=== PATIENT | female | born 1965 | race Caucasian/White ===

== ENCOUNTER 2017-02-25 12:14 | Emergency (ER) | payer OTHER ==
--- NOTE | 2017-02-25 12:33 | ERPHSYRPT ---
- History of Present Illness Time Seen by Provider: 02/25/17 12:27 Source: patient Exam Limitations: no limitations Patient Subjective Stated Complaint: rash Triage Nursing Assessment: pt states she has had poison ana for past week. c/o severe itching to bilat arms, neck and legs. poison type rash to areas. Physician History: The patient is a 51-year-old female with her complaining of getting into poison ana about a week ago and now she has a rash on her arms that back of her neck and feet that is itching severely. She has tried calamine lotion without effect. She has a known history of being allergic to poison ana. Her past medical history is significant for hypertension, hypothyroidism, sleep disorder, appendectomy, and hernia repair. Timing/Duration: week(s) (1) Quality: itchy Severity: moderate Location: extremities, neck Possible Causes: poison ana Modifying Factors: Improves With: calamine lotion Associated Symptoms: rash Allergies/Adverse Reactions: Penicillins Allergy (Verified 02/25/17 12:21) Home Medications: Enalapril Maleate [Vasotec] 20 mg PO HS 12/06/14 [History] Hydrochlorothiazide 12.5 mg PO DAILY 12/06/14 [History] Levothyroxine Sodium 50 Mcg [Synthroid 50 Mcg] 75 mcg PO DAILY 12/06/14 [ History] Metoprolol Tartrate 50 mg PO BID 12/06/14 [History] Hx Tetanus, Diphtheria Vaccination/Date Given: Yes Hx Influenza Vaccination/Date Given: No Hx Pneumococcal Vaccination/Date Given: No Immunizations Up to Date: Yes - Review of Systems Constitutional: No Fever, No Chills Eyes: No Symptoms Ears, Nose, & Throat: No Symptoms Respiratory: No Cough, No Dyspnea Cardiac: No Chest Pain, No Edema, No Syncope Abdominal/Gastrointestinal: No Abdominal Pain, No Nausea, No Vomiting, No Diarrhea Genitourinary Symptoms: No Dysuria Musculoskeletal: No Back Pain, No Neck Pain Skin: Rash Neurological: No Dizziness, No Focal Weakness, No Sensory Changes Psychological: No Symptoms Endocrine: No Symptoms Hematologic/Lymphatic: No Symptoms Immunological/Allergic: No Symptoms All Other Systems: Reviewed and Negative - Past Medical History Pertinent Past Medical History: Yes Cardiac History: Hypertension Respiratory History: Sleep Apnea Endocrine Medical History: Hypothyroidism Musculoskeletal History: Arthritis Psycho-Social History: Depression Female Reproductive Disorders: Endometriosis Other Medical History: anemia - Past Surgical History Past Surgical History: Yes Gastrointestinal: Appendectomy, Hernia Repair Musculoskeletal: Orthopedic Surgery Female Surgical History: Section, Hysterectomy Other Surgical History: right leg surgery, left hand - Social History Smoking Status: Current every day smoker Exposure to second hand smoke: No Drug Use: none Patient Lives Alone: No - Female History Hx Now: No - Nursing Vital Signs Nursing Vital Signs: Initial Vital Signs Temperature 99.1 F Temperature Source Oral Pulse Rate 90 Respiratory Rate 18 Blood Pressure [Right Arm] 141/81 Pain Intensity 0 - Physical Exam General Appearance: no apparent distress, alert Eye Exam: PERRL/EOMI, eyes nml inspection Ears, Nose, Throat Exam: normal ENT inspection, pharynx normal, moist mucous membranes Neck Exam: normal inspection, non-tender, supple, full range of motion Respiratory Exam: normal breath sounds, lungs clear, No respiratory distress Cardiovascular Exam: regular rate/rhythm, normal heart sounds Gastrointestinal/Abdomen Exam: soft, mass, No tenderness Pelvic Exam: not done Rectal Exam: not done Back Exam: normal inspection, normal range of motion, No CVA tenderness, No vertebral tenderness Extremity Exam: normal inspection, normal range of motion Neurologic Exam: alert, oriented x 3, cooperative, normal mood/affect, sensation nml, No motor deficits Skin Exam: rash (linear on arms, feet, neck.) SpO2 Interpretation: normal SpO2: 99 Oxygen Delivery: Room Air - Departure Time of Disposition: 12:35 Departure Disposition: Home Clinical Impression: Contact dermatitis due to poison ana Condition: Stable Critical Care Time: No Additional Instructions: You have an allergic reaction to poison ana. Take prednisone 60 mg daily for 5 days. If no improvement by Monday, contact your local provider. Prescriptions: Prednisone 20 mg [Deltasone 20 mg] 3 tab PO DAILY #15 tablet
[2017-02-25 12:43] VITALS: BP 119/82; PULSE 81; O2SAT 97
== END 2017-02-25 12:40 | disposition home or self-care (01) ==
LOC: ED 12:14
DX: L23.7 Allergic contact dermatitis due to plants, except food (principal)
CPT/HCPCS: 99283

== ENCOUNTER 2017-03-27 19:25 | Emergency (ER) | payer OTHER ==
[2017-03-27] MEDS ORDERED: DUONEB 0.5-3 MG/3 ml Neb IH ONE ×2 (19:52→19:58)
--- NOTE | 2017-03-27 19:58 | ERPHSYRPT ---
- History of Present Illness Time Seen by Provider: 03/27/17 19:45 Source: patient Exam Limitations: clinical condition Patient Subjective Stated Complaint: Pt sts shortness of breath at home 1-1.5 hours ago. Sts off and on rash x 3 weeks on arms. Sts tonight having a feeling like she has to swallow to get air. Denies feeling like her tongue is swollen. Sts her mouth is dry. No new soaps, perfumes, laundry detergents. Sts been on prednisone twice recently for rash. Triage Nursing Assessment: Pt alert, oriented, answers all questions appropriately. Able to speak in full sentences. Resps non-labored. SPO2 97% room air. Lung sounds CTA bilat non-labored. Physician History: PATIENT COMPLAINS OF DIFFICULTY TAKING A DEEP BREATH OVER A FEW DAYS. HAS A NONPRODUCTIVE COUGH FOR 3-4 DAYS AND A RASH OVER HER RIGHT FOREARM FOR 3 WEEKS. DENIES FEVER, OR CHEST PAIN. Timing/Duration: day(s) Activities at Onset: none Severity of Dyspnea-Max: mild Severity of Dyspnea-Current: mild Possible Cause: occasional episodes Modifying Factors: Improves With: deep breath Associated Symptoms: cough Allergies/Adverse Reactions: Penicillins Allergy (Verified 03/27/17 19:25) Home Medications: Enalapril Maleate [Vasotec] 20 mg PO HS 12/06/14 [History] Hydrochlorothiazide 12.5 mg PO DAILY 12/06/14 [History] Levothyroxine Sodium 50 Mcg [Synthroid 50 Mcg] 75 mcg PO DAILY 12/06/14 [ History] Metoprolol Tartrate 50 mg PO BID 12/06/14 [History] Armodafinil [Nuvigil] 150 mg PO DAILY 03/27/17 [History] Hx Tetanus, Diphtheria Vaccination/Date Given: Yes Hx Influenza Vaccination/Date Given: No Hx Pneumococcal Vaccination/Date Given: No - Review of Systems Constitutional: No Fever, No Chills Eyes: No Symptoms Ears, Nose, & Throat: No Symptoms Respiratory: Cough, Dyspnea Cardiac: No Chest Pain, No Edema, No Syncope Abdominal/Gastrointestinal: No Abdominal Pain, No Nausea, No Vomiting, No Diarrhea Genitourinary Symptoms: No Dysuria Musculoskeletal: No Back Pain, No Neck Pain Skin: No Rash Neurological: No Dizziness, No Focal Weakness, No Sensory Changes Psychological: No Symptoms Endocrine: No Symptoms All Other Systems: Reviewed and Negative - Past Medical History Pertinent Past Medical History: Yes Cardiac History: Hypertension Respiratory History: Sleep Apnea Endocrine Medical History: Hypothyroidism Musculoskeletal History: Arthritis Psycho-Social History: Depression Female Reproductive Disorders: Endometriosis Other Medical History: anemia - Past Surgical History Past Surgical History: Yes Gastrointestinal: Appendectomy, Hernia Repair Musculoskeletal: Orthopedic Surgery Female Surgical History: Section, Hysterectomy Other Surgical History: right leg surgery, left hand, hernia repair 6 weeks ago - Social History Smoking Status: Current every day smoker How long have you smoked: 30 Exposure to second hand smoke: No Drug Use: none Patient Lives Alone: No - Female History Hx Last Menstrual Period: hyst Hx Now: No - Nursing Vital Signs Nursing Vital Signs: Initial Vital Signs Temperature 99.3 F Temperature Source Oral Pulse Rate 78 Respiratory Rate 16 Blood Pressure [] 136/95 Pain Intensity 0 - Physical Exam General Appearance: no apparent distress, alert Eye Exam: PERRL/EOMI Neck Exam: normal inspection, supple Respiratory Exam: lungs clear, diminished breath sounds Cardiovascular/Chest Exam: normal heart sounds, regular rate/rhythm Abdominal/Gastrointestinal Exam: soft, normal bowel sounds, No tenderness, No distention, No mass Extremity Exam: non-tender, normal range of motion, normal inspection, no calf tenderness, no pedal edema Peripheral Pulses Exam: carotid (R): 2+, carotid (L): 2+, femoral (R): 2+, femoral (L): 2+, dorsalis-pedis (R): 2+, dorsalis-pedis (L): 2+ Neurologic Exam: alert, oriented x 3, cooperative, 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 II-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 nml as tested, sensation nml, No motor deficits Skin Exam: normal color, warm, No dry SpO2 Interpretation: normal SpO2: 97 Oxygen Delivery: Room Air - Course EKG Interpreted by Me: RATE, Sinus Rhythm, NORMAL AXIS - Radiology Exams Chest X-ray Interpretation: Reviewed by me (BILATERAL LOWER LOBE INFILTRATES VS SCARRING) - CT Exams Chest CT Interpretation: Discussed w/radiologist (PULMONARY EMBOLISM, INCIDENTAL MINIMAL BIBASILAR ATELECTASIS WITH SMALL LEFT POSTERIOR MEDIAL PEUMATOCELE), Tele-radiologist Report Ordered Tests: Active Orders 24 hr Category Date Time Status Line Repairer STAT Care 03/27/17 19:52 Active EKG-ER Only STAT Care 03/27/17 19:52 Active IV Insertion STAT Care 03/27/17 19:52 Active CHEST 2 VIEWS (PA AND LAT) Stat Exams 03/27/17 19:53 Taken CHEST WITH CONTRAST [CT] Stat Exams 03/27/17 21:18 Taken ARTERIAL BLOOD GASES Stat Lab 03/27/17 19:57 Completed BLOOD CULTURE Stat Lab 03/27/17 20:20 Received BMP Stat Lab 03/27/17 20:17 Completed CBC W DIFF Stat Lab 03/27/17 20:17 Completed D-DIMER QUANTITATION Stat Lab 03/27/17 20:17 Completed MAGNESIUM Stat Lab 03/27/17 20:17 Completed PROTIME WITH INR Stat Lab 03/27/17 20:17 Completed TROPONIN Stat Lab 03/27/17 20:17 Completed Peak Expiratory Flow Rate ONCE RT 03/27/17 19:54 Completed Respiratory Nebulizer STAT RT 03/27/17 19:54 Completed Medication Summary Generic Name Dose Route Start Last Admin Trade Name Freq PRN Reason Stop Dose Admin Sodium Chloride 1,000 mls @ 50 mls/hr 03/27/17 20:00 03/27/17 20:14 Sodium Chloride 0.9% 1000 Ml IV 04/26/17 19:59 50 mls/hr .Q20H [place] Administration Discontinued Medications Generic Name Dose Route Start Last Admin Trade Name Freq PRN Reason Stop Dose Admin Albuterol/Ipratropium 3 ml 03/27/17 19:52 03/27/17 20:15 Duoneb 0.5-3 Mg/3 Ml Neb IH 03/27/17 19:53 3 ml STAT ONE Administration Albuterol/Ipratropium Confirm 03/27/17 19:58 Duoneb 0.5-3 Mg/3 Ml Neb Administered 03/27/17 19:59 Dose 3 ml IH .STK-MED ONE Levofloxacin/Dextrose 500 mg in 100 mls @ 100 mls/hr 03/27/17 21:04 03/27/17 22:23 Levofloxacin 500mg/100ml D5w IV 03/27/17 22:03 100 mls/hr STAT STA Administration Levofloxacin/Dextrose Confirm 03/27/17 21:11 Levofloxacin 500mg/100ml D5w Administered 03/27/17 21:12 Dose 500 mg in 100 mls @ ud IV .STK-MED ONE Magnesium Sulfate/Dextrose Confirm 03/27/17 21:13 Magnesium 1 Gm / 100 Ml D5w Administered 03/27/17 21:14 Dose 100 mls @ ud IV .STK-MED ONE Magnesium Sulfate/Dextrose 100 mls @ 200 mls/hr 03/27/17 21:15 03/27/17 21:18 Magnesium 1 Gm / 100 Ml D5w IV 03/27/17 21:44 200 mls/hr STAT ONE Administration Methylprednisolone Sodium Succinate 125 mg 03/27/17 21:04 03/27/17 22:23 Solu-Medrol 125 Mg IV 03/27/17 21:05 125 mg STAT ONE Administration Methylprednisolone Sodium Succinate Confirm 03/27/17 21:11 Solu-Medrol 125 Mg Administered 03/27/17 21:12 Dose 125 mg .ROUTE .STK-MED ONE Lab/Rad Data: Laboratory Result Diagrams 03/27/17 20:17 03/27/17 20:17 Laboratory Results 03/27/17 03/27/17 03/27/17 Range/Units 20:17 20:17 20:17 WBC 9.3 (4.0-10.5) K/mm3 RBC 4.31 (4.1-5.4) M/mm3 Hgb 12.9 (12.0-16.0) gm/dl Hct 38.5 (35-47) % MCV 89.3 (78-100) fl MCH 29.9 (26-32) pg MCHC 33.5 (32-36) g/dl RDW 13.5 (11.5-14.0) % Plt Count 446 (150-450) K/mm3 MPV 10.1 H (6-9.5) fl Gran % 64.4 (36.0-66.0) % Lymphocytes % 29.3 (24.0-44.0) % Monocytes % 3.7 (0.0-12.0) % Eosinophils % 2.0 (0.00-5.0) % Basophils % 0.6 (0.0-0.4) % Basophils # 0.06 (0-0.4) INR 1.05 (0.8-3.0) D-Dimer 505.48 H* (0.00-500.00) ng/mL Puncture Site pCO2 (35-45) mmHg pO2 (75-100) mmHg Base Excess (-2.0-2.0) O2 Saturation (94-100) g/dF ABG pH (7.35-7.45) ABG HCO3 (22-28) ABG O2 Sat (Measured) (95-100) % David Test A-a Gradient a/A Ratio Hemoglobin Carboxyhemoglobin (0.0-6.9) % THgb Methemoglobin (1.4-1.5) % Potassium 3.6 (3.5-5.1) Temperature C POC O2 Flow Rate % Sodium 130 L (136-145) mEq/L Chloride 93 L (98-107) mEq/L Carbon Dioxide 26.3 (21-32) mEq/L Anion Gap 13.8 (5-15) MEQ/L BUN 8 L (9-20) mg/dL Creatinine 0.83 (0.55-1.30) mg/dl Estimated GFR > 60 ML/MIN Glucose 110 (70-110) MG/DL Calcium 9.2 (8.5-10.1) mg/dL Magnesium 1.5 L (1.8-2.4) mg/dL Troponin I < 0.017 (0.000-0.056) ng/ml 03/27/17 Range/Units 19:57 WBC (4.0-10.5) K/mm3 RBC (4.1-5.4) M/mm3 Hgb (12.0-16.0) gm/dl Hct (35-47) % MCV (78-100) fl MCH (26-32) pg MCHC (32-36) g/dl RDW (11.5-14.0) % Plt Count (150-450) K/mm3 MPV (6-9.5) fl Gran % (36.0-66.0) % Lymphocytes % (24.0-44.0) % Monocytes % (0.0-12.0) % Eosinophils % (0.00-5.0) % Basophils % (0.0-0.4) % Basophils # (0-0.4) INR (0.8-3.0) D-Dimer (0.00-500.00) ng/mL Puncture Site RIGHT BRACHIAL pCO2 39 (35-45) mmHg pO2 74 L (75-100) mmHg Base Excess 4.4 H (-2.0-2.0) O2 Saturation 91.3 L (94-100) g/dF ABG pH 7.47 H (7.35-7.45) ABG HCO3 28.4 H (22-28) ABG O2 Sat (Measured) 96.7 (95-100) % David Test NOT APPLICABLE A-a Gradient 27 a/A Ratio 0.73 Hemoglobin 12.4 Carboxyhemoglobin 4.6 (0.0-6.9) % THgb Methemoglobin 1.0 L (1.4-1.5) % Potassium 3.5 (3.5-5.1) Temperature 37.0 C POC O2 Flow Rate 21 % Sodium (136-145) mEq/L Chloride (98-107) mEq/L Carbon Dioxide (21-32) mEq/L Anion Gap (5-15) MEQ/L BUN (9-20) mg/dL Creatinine (0.55-1.30) mg/dl Estimated GFR ML/MIN Glucose (70-110) MG/DL Calcium (8.5-10.1) mg/dL Magnesium (1.8-2.4) mg/dL Troponin I (0.000-0.056) ng/ml - Progress Progress: improved Air Movement: good Progress Note: 03/27/17 21:20 PATIENT GIVEN IV NORMAL SALINE 200ML/HR, SOLUMEDROL 125MG IV, LEVAQUIN 500MG IVPB AFTER 2 SETS OF BLOOD CULTURES OBTAINED. DUONEB AEROSOL TX, MAGNESIUM SULFATE 1GM IVPB Blood Culture(s) Obtained: Yes Antibiotics given: Yes (LEVAQUIN 500MG IVPB) Counseled pt/family regarding: lab results, diagnosis, need for follow-up, rad results - Departure Time of Disposition: 22:55 Departure Disposition: Home Clinical Impression: ACUTE DYSPNEA, REACTIVE AIRWAY DISEASE Condition: Stable Critical Care Time: No Referrals: GARRY GREENFIELD [Primary Care Provider] - Prescriptions: Albuterol 2.5 mg/3 ml Neb [Proventil 2.5 mg/3 ml Neb] 2.5 mg IH Q4HPRN PRN #30 neb PRN Reason: DIFFICULTY BREATHING Levofloxacin [Levaquin] 500 mg PO DAILY #10 tablet Prednisone 20 mg [Deltasone 20 mg] 2 tab PO DAILY #10 tablet
[2017-03-27] MEDS ORDERED: Sodium Chloride 0.9% 1000 ML 1,000 ML IV SCH (20:00)
[2017-03-27] MEDS ORDERED: Sodium Chloride 0.9% 1000 ML 1,000 ML ONE (20:11)
[2017-03-27 20:19] LABS: A-aADO2 27; ARTERIAL BLD GAS O2 SATURATION 96.7 % (95-100); ARTERIAL BLOOD GAS BASE EXCESS 4.4 (-2.0-2.0); ARTERIAL BLOOD GAS FIO2 21 %; ARTERIAL BLOOD GAS PO2 74 mmHg (75-100); ARTERIAL BLOOD GAS pH 7.47 (7.35-7.45)
[2017-03-27 20:23] LABS: BASOPHIL % 0.6 % (0.0-0.4); Granulocytes % 64.4 % (36.0-66.0); Lymphocytes % 29.3 % (24.0-44.0); Mean Cell Volume 89.3 fl (78-100); Mean Corpuscular Hemoglobin 29.9 pg (26-32); Mean Platelet Volume 10.1 fl (6-9.5); Monocytes % 3.7 % (0.0-12.0); Platelet Count 446 K/mm3 (150-450); Red Blood Count 4.31 M/mm3 (4.1-5.4); Red Cell Distribution Width 13.5 % (11.5-14.0); White Blood Count 9.3 K/mm3 (4.0-10.5)
[2017-03-27 20:49] LABS: INR 1.05 (0.8-3.0); PROTIME 11.9 SECONDS (9.95-12.35)
[2017-03-27 21:01] LABS: ANION GAP 13.8 MEQ/L (5-15); BLOOD UREA NITROGEN 8 mg/dL (9-20); CHLORIDE 93 mEq/L (98-107); Carbon Dioxide 26.3 mEq/L (21-32); Glucose 110 MG/DL (70-110); MAGNESIUM 1.5 mg/dL (1.8-2.4); Potassium 3.6 mEq/L (3.5-5.1); SODIUM 130 mEq/L (136-145)
[2017-03-27] MEDS ORDERED: Levofloxacin 500MG/100ML D5W 500 MG/100 ML BAG IV STA (21:04)
[2017-03-27] MEDS ORDERED: solu-MEDROL 125 MG IV ONE (21:04)
[2017-03-27 21:05] LABS: TROPONIN < 0.017 ng/ml (0.000-0.056)
[2017-03-27] MEDS ORDERED: solu-MEDROL 125 MG ONE (21:11)
[2017-03-27] MEDS ORDERED: Levofloxacin 500MG/100ML D5W 500 MG/100 ML BAG IV ONE (21:11)
[2017-03-27] MEDS ORDERED: Magnesium 1 Gm / 100 Ml D5W*** 100 ML IV ONE ×2 (21:13→21:15)
[2017-03-27 23:46] VITALS: BP 150/97; PULSE 74; O2SAT 98
--- NOTE | 2017-03-28 09:18 | XRAY ---
Indication: Cough and short of breath. Comparison: December 06, 2014. PA/lateral chest better inflated again with right middle lobe subsegmental atelectasis/scarring. Heart is not enlarged. Vascularity normal. No new/acute cardiopulmonary abnormalities. Bony thorax intact. Impression: Nonacute chest with chronic feature.
--- NOTE | 2017-03-28 09:21 | XRAY ---
Indication: Short of breath and cough. Elevated d-dimer. Multiple contiguous axial images obtained through the chest using 80 cc Isovue 370 contrast and PE protocol. Comparison: None There is satisfactory opacification of the pulmonary arteries to include the lobar and segmental branches. No filling defect or pulmonary embolus. Heart is not enlarged. Aorta is normal in course and caliber. No pathologic mediastinal/hilar lymphadenopathy. Small hiatal hernia. Examination of the lung parenchyma demonstrates mild bilateral dependent atelectasis and left costophrenic angle bleb. Minimal fibrosis/scarring in the right middle lobe and lingula. No suspicious pulmonary mass, infiltrate, or effusion. Bony thorax intact. Limited upper abdomen including adrenal glands are unremarkable. Impression: 1. Negative for pulmonary embolus. No acute cardiopulmonary abnormalities. 2. Small hiatal hernia. Comment: Preliminary interpretation was made by [facility]. No discrepancy. CT DI 23.69
== END 2017-03-27 23:46 | disposition home or self-care (01) ==
LOC: ED 19:25
DX: R06.00 Dyspnea, unspecified (principal); J45.909 Unspecified asthma, uncomplicated; R21 Rash and other nonspecific skin eruption; Z79.899 Other long term (current) drug therapy
CPT/HCPCS: 36000; 36415; 36600; 71020; 71260; 80048; 82375; 82803; 83735; 84484; 85025; 85379; 85610; 87040; 93005; 93041; 94150; 94640; 96360; 96361; 96365; 96367; 96374; 99284; J1956; J2930; J3475; A9270-GY

== ENCOUNTER 2021-05-10 09:19 | Observation (INO) | payer BC ==
--- NOTE | 2021-05-10 09:54 | ERPHSYRPT ---
- History of Present Illness Time Seen by Provider: 05/10/21 09:20 Source: patient Exam Limitations: no limitations Patient Subjective Stated Complaint: PT STATES SHE FEELS DISCONECTED LIKE SHE CANNOT THINK STRAIT. STATES THAT SHE HAS MULTIPLE SLEEP DISORDERS AND WEARS CPAP WITH OXYGEN AT NIGHT. SHE WAS ADVISED TO HAVE BLOOD GASES DRAWN WHEN SHE HAS DIFFICULTIES THINKING. Triage Nursing Assessment: ALERT AND ORIENTED. SKIN PWD. LUNGS CLEAR TO A USCULTATION. PT TALKATIVE/ANXIOUS. Physician History: Patient is a 55-year-old female presents to emergency department as a referral by her primary care doctor for evaluation of feeling unwell. Patient was advised that if she ever feels unwell she needs to get a ABG to assure that her CO2 was not increasing. Patient felt unwell this morning. Patient called her primary care doctor and was advised to come to our ED. Patient denies pain. Patient has a history of multiple sleep disorders. Patient is a smoker. Patient blood pressure observed to be elevated on board runner. We will obtain a manual blood pressure. No associated nausea or vomiting. No diarrhea. No rash. No headache. No chest pain or shortness of breath. Significant other bedside. They otherwise voiced no other complaints or concerns at this time. Timing/Duration: today Severity: mild Modifying Factors: Improves With: nothing Associated Symptoms: denies symptoms Allergies/Adverse Reactions: Penicillins Allergy (Verified 03/27/17 19:25) Home Medications: Metoprolol Tartrate 150 mg PO BID 12/06/14 [History] Buspirone HCl 5 mg [Buspar 5 mg] 5 mg PO BIDPRN PRN 05/10/21 [History] Dextroamphetamine/Amphetamine [Adderall Xr 30 mg Capsule] 30 mg PO BID 05/10/21 [History] Sertraline HCl 50 mg [Zoloft 50 mg Tablet] 150 mg PO HS 05/10/21 [History] Hx Tetanus, Diphtheria Vaccination/Date Given: No Hx Influenza Vaccination/Date Given: No Hx Pneumococcal Vaccination/Date Given: No Immunizations Up to Date: No Travel Risk - International Travel Have you traveled outside of the country in past 3 weeks: No - Coronavirus Screening Are you exhibiting any of the following symptoms?: No Close contact with a COVID-19 positive Pt in past 14-21 Days: No - Vaccine Status Have you recieved a Covid-19 vaccination: Yes 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 - Vaccination Dates Date of 2cond Vaccination (if applicable): 01/07/21 - Review of Systems Constitutional: No Symptoms, No Fever, No Chills Eyes: No Symptoms Ears, Nose, & Throat: No Symptoms Respiratory: No Symptoms, No Cough, No Dyspnea Cardiac: No Symptoms, No Chest Pain, No Edema, No Syncope Abdominal/Gastrointestinal: No Symptoms, No Abdominal Pain, No Nausea, No Vomiting, No Diarrhea Genitourinary Symptoms: No Symptoms, No Dysuria Musculoskeletal: No Symptoms, No Back Pain, No Neck Pain Skin: No Symptoms, No Rash Neurological: No Symptoms, No Dizziness, No Focal Weakness, No Sensory Changes Psychological: No Symptoms Endocrine: No Symptoms Hematologic/Lymphatic: No Symptoms Immunological/Allergic: No Symptoms All Other Systems: Reviewed and Negative - Past Medical History Pertinent Past Medical History: Yes Cardiac History: Hypertension Respiratory History: Sleep Apnea Endocrine Medical History: Hypothyroidism Musculoskeletal History: Arthritis Psycho-Social History: Anxiety, Depression Female Reproductive Disorders: Endometriosis Other Medical History: anemia, NARCOLEPSY, - Past Surgical History Past Surgical History: Yes Gastrointestinal: Appendectomy, Hernia Repair Musculoskeletal: Orthopedic Surgery Female Surgical History: Hysterectomy, Dilation & Curettage, Section Other Surgical History: right leg surgery, left hand, hernia repair - Social History Smoking Status: Current every day smoker How long have you smoked: 30 Exposure to second hand smoke: Yes Drug Use: marijuana Patient Lives Alone: No - Female History Hx Now: No (HYSTERECTOMY) - Nursing Vital Signs Nursing Vital Signs: Initial Vital Signs Pulse Rate 67 05/10/21 09:19 Respiratory Rate 20 05/10/21 09:19 Blood Pressure 231/113 05/10/21 09:19 O2 Sat by Pulse Oximetry 100 05/10/21 09:19 - Physical Exam General Appearance: no apparent distress, alert Eye Exam: PERRL/EOMI, eyes nml inspection Ears, Nose, Throat Exam: normal ENT inspection, TMs normal, pharynx normal, moist mucous membranes Neck Exam: normal inspection, non-tender, supple, full range of motion Respiratory Exam: normal breath sounds, lungs clear, No respiratory distress Cardiovascular Exam: regular rate/rhythm, normal heart sounds, normal peripheral pulses Gastrointestinal/Abdomen Exam: soft, normal bowel sounds, No tenderness, No mass Back Exam: normal inspection, normal range of motion, No CVA tenderness, No vertebral tenderness Extremity Exam: normal inspection, normal range of motion, pelvis stable Neurologic Exam: alert, oriented x 3, cooperative, normal mood/affect, sensation nml, No motor deficits Skin Exam: normal color, warm, dry, No rash Lymphatic Exam: No adenopathy SpO2 Interpretation: normal SpO2: 100 O2 Delivery: Room Air - Course Nursing assessment & vital signs reviewed: Yes EKG Interpreted by Me: RATE (66), Sinus Rhythm, NORMAL AXIS, NORMAL INTERVALS - CT Exams Head CT Interpretation: Tele-radiologist Report (Well appearing brain parenchyma, ventricles, and bony calvarium for patient's age. Visualized paranasal sinuses and mastoid air cells are clear.) Ordered Tests: Active Orders 24 hr Category Date Time Status Zinc Etcher STAT Care 05/10/21 09:38 Active EKG-ER Only STAT Care 05/10/21 09:38 Active IV Insertion STAT Care 05/10/21 09:38 Active Pulse Oximetry (ED) STAT Care 05/10/21 09:38 Active HEAD WITHOUT CONTRAST [CT] Stat Exams 05/10/21 10:39 Completed ABG [ARTERIAL BLOOD GASES] Stat Lab 05/10/21 09:40 Completed CBC W DIFF Stat Lab 05/10/21 09:53 Completed CMP Stat Lab 05/10/21 09:53 Completed MAGNESIUM Stat Lab 05/10/21 09:53 Completed TROPONIN Q3H Lab 05/10/21 09:53 Completed TROPONIN Q3H Lab 05/10/21 12:35 Completed TROPONIN Q3H Lab 05/10/21 15:45 Ordered TROPONIN Q3H Lab 05/10/21 18:45 Ordered TROPONIN Q3H Lab 05/10/21 21:45 Ordered TSH [TSH, 3RD Generation] Stat Lab 05/10/21 09:39 Completed UA W/RFX UR CULTURE Stat Lab 05/10/21 09:38 Completed Transfer Order Routine Transfer 05/10/21 Ordered Medication Summary Discontinued Medications Generic Name Dose Route Start Last Admin Trade Name Freq PRN Reason Stop Dose Admin Amlodipine Besylate 5 mg 05/10/21 12:50 05/10/21 13:01 Norvasc 5 Mg PO 05/10/21 12:51 5 mg STAT ONE Administration Amlodipine Besylate Confirm 05/10/21 12:59 Norvasc 5 Mg Administered 08/02/21 13:00 Dose 5 mg .ROUTE .STK-MED ONE Lab/Rad Data: Laboratory Result Diagrams 05/10/21 09:53 05/10/21 09:53 Laboratory Results 05/10/21 05/10/21 05/10/21 Range/Units 13:13 12:35 09:53 WBC (4.0-10.5) K/mm3 RBC (4.1-5.4) M/mm3 Hgb (12.0-16.0) gm/dl Hct (35-47) % MCV (78-100) fl MCH (26-32) pg MCHC (32-36) g/dl RDW (11.5-14.0) % Plt Count (150-450) K/mm3 MPV (7.5-11.0) fl Gran % (36.0-66.0) % Eos # (Auto) (0-0.5) Absolute Lymphs (auto) (1.0-4.6) Absolute Monos (auto) (0.0-1.3) Lymphocytes % (24.0-44.0) % Monocytes % (0.0-12.0) % Eosinophils % (0.00-5.0) % Basophils % (0.0-0.4) % Absolute Granulocytes (1.4-6.9) Basophils # (0-0.4) Puncture Site pCO2 (35-45) mmHg pO2 (75-100) mmHg Base Excess (-2.0-2.0) O2 Saturation (94-100) g/dF ABG pH (7.35-7.45) ABG HCO3 (22-28) ABG O2 Sat (Measured) (95-100) % David Test A-a Gradient a/A Ratio Hemoglobin Carboxyhemoglobin (0.0-6.9) % THgb Methemoglobin (1.4-1.5) % Potassium (3.5-5.1) Temperature C POC O2 Flow Rate % Sodium (137-145) mmol/L Chloride (98-107) mmol/L Carbon Dioxide (22-30) mmol/L Anion Gap (5-15) MEQ/L BUN (7-17) mg/dL Creatinine (0.52-1.04) mg/dL Estimated GFR ML/MIN Glucose (74-106) mg/dL Calcium (8.4-10.2) mg/dL Magnesium (1.6-2.3) mg/dL Total Bilirubin (0.2-1.3) mg/dL AST (14-36) U/L ALT (0-35) U/L Alkaline Phosphatase (38-126) U/L Troponin I < 0.012 < 0.012 (0.000-0.034) ng/mL Serum Total Protein (6.3-8.2) g/dL Albumin (3.5-5.0) g/dL TSH 3rd Generation (0.47-4.68) mIU/L Urine Color (YELLOW) Urine Appearance (CLEAR) Urine pH (5-6) Ur Specific [place] (1.005-1.025) Urine Protein (Negative) Urine Ketones (NEGATIVE) Urine Blood (0-5) Max/ul Urine Nitrite (NEGATIVE) Urine Bilirubin (NEGATIVE) Urine Urobilinogen (0-1) mg/dL Ur Leukocyte Esterase (NEGATIVE) Urine WBC (Auto) (0-5) /HPF Urine RBC (Auto) (0-2) /HPF U Epithel Cells (Auto) (FEW) /HPF Urine Bacteria (Auto) (NEGATIVE) /HPF Urine Mucus (Auto) (NEGATIVE) /HPF Urine Culture Reflexed (NO) Urine Glucose (NEGATIVE) mg/dL SARS-CoV-2 (PCR) NEGATIVE (NEGATIVE) 05/10/21 05/10/21 05/10/21 Range/Units 09:53 09:53 09:40 WBC 8.8 (4.0-10.5) K/mm3 RBC 4.76 (4.1-5.4) M/mm3 Hgb 14.0 (12.0-16.0) gm/dl Hct 43.2 (35-47) % MCV 90.8 (78-100) fl MCH 29.4 (26-32) pg MCHC 32.4 (32-36) g/dl RDW 13.5 (11.5-14.0) % Plt Count 366 (150-450) K/mm3 MPV 10.5 (7.5-11.0) fl Gran % 72.1 H (36.0-66.0) % Eos # (Auto) 0.14 (0-0.5) Absolute Lymphs (auto) 1.87 (1.0-4.6) Absolute Monos (auto) 0.42 (0.0-1.3) Lymphocytes % 21.3 L (24.0-44.0) % Monocytes % 4.8 (0.0-12.0) % Eosinophils % 1.6 (0.00-5.0) % Basophils % 0.2 (0.0-0.4) % Absolute Granulocytes 6.32 (1.4-6.9) Basophils # 0.02 (0-0.4) Puncture Site RIGHT RADIAL pCO2 42 (35-45) mmHg pO2 76 (75-100) mmHg Base Excess 4.7 H (-2.0-2.0) O2 Saturation 89.6 L (94-100) g/dF ABG pH 7.45 (7.35-7.45) ABG HCO3 29.2 H* (22-28) ABG O2 Sat (Measured) 96.9 (95-100) % David Test NOT APPLICABLE A-a Gradient 21 a/A Ratio 0.78 Hemoglobin 13.3 Carboxyhemoglobin 6.5 (0.0-6.9) % THgb Methemoglobin 1.0 L (1.4-1.5) % Potassium 4.1 4.0 (3.5-5.1) Temperature 37.0 C POC O2 Flow Rate 21 % Sodium 141 (137-145) mmol/L Chloride 104 (98-107) mmol/L Carbon Dioxide 28 (22-30) mmol/L Anion Gap 13.1 (5-15) MEQ/L BUN 10 (7-17) mg/dL Creatinine 0.56 (0.52-1.04) mg/dL Estimated GFR > 60.0 ML/MIN Glucose 107 H (74-106) mg/dL Calcium 9.9 (8.4-10.2) mg/dL Magnesium 2.1 (1.6-2.3) mg/dL Total Bilirubin 0.20 (0.2-1.3) mg/dL AST 21 (14-36) U/L ALT 12 (0-35) U/L Alkaline Phosphatase 78 (38-126) U/L Troponin I (0.000-0.034) ng/mL Serum Total Protein 7.2 (6.3-8.2) g/dL Albumin 4.2 (3.5-5.0) g/dL TSH 3rd Generation (0.47-4.68) mIU/L Urine Color (YELLOW) Urine Appearance (CLEAR) Urine pH (5-6) Ur Specific [place] (1.005-1.025) Urine Protein (Negative) Urine Ketones (NEGATIVE) Urine Blood (0-5) Max/ul Urine Nitrite (NEGATIVE) Urine Bilirubin (NEGATIVE) Urine Urobilinogen (0-1) mg/dL Ur Leukocyte Esterase (NEGATIVE) Urine WBC (Auto) (0-5) /HPF Urine RBC (Auto) (0-2) /HPF U Epithel Cells (Auto) (FEW) /HPF Urine Bacteria (Auto) (NEGATIVE) /HPF Urine Mucus (Auto) (NEGATIVE) /HPF Urine Culture Reflexed (NO) Urine Glucose (NEGATIVE) mg/dL SARS-CoV-2 (PCR) (NEGATIVE) 05/10/21 05/10/21 Range/Units 09:39 09:38 WBC (4.0-10.5) K/mm3 RBC (4.1-5.4) M/mm3 Hgb (12.0-16.0) gm/dl Hct (35-47) % MCV (78-100) fl MCH (26-32) pg MCHC (32-36) g/dl RDW (11.5-14.0) % Plt Count (150-450) K/mm3 MPV (7.5-11.0) fl Gran % (36.0-66.0) % Eos # (Auto) (0-0.5) Absolute Lymphs (auto) (1.0-4.6) Absolute Monos (auto) (0.0-1.3) Lymphocytes % (24.0-44.0) % Monocytes % (0.0-12.0) % Eosinophils % (0.00-5.0) % Basophils % (0.0-0.4) % Absolute Granulocytes (1.4-6.9) Basophils # (0-0.4) Puncture Site pCO2 (35-45) mmHg pO2 (75-100) mmHg Base Excess (-2.0-2.0) O2 Saturation (94-100) g/dF ABG pH (7.35-7.45) ABG HCO3 (22-28) ABG O2 Sat (Measured) (95-100) % David Test A-a Gradient a/A Ratio Hemoglobin Carboxyhemoglobin (0.0-6.9) % THgb Methemoglobin (1.4-1.5) % Potassium (3.5-5.1) Temperature C POC O2 Flow Rate % Sodium (137-145) mmol/L Chloride (98-107) mmol/L Carbon Dioxide (22-30) mmol/L Anion Gap (5-15) MEQ/L BUN (7-17) mg/dL Creatinine (0.52-1.04) mg/dL Estimated GFR ML/MIN Glucose (74-106) mg/dL Calcium (8.4-10.2) mg/dL Magnesium (1.6-2.3) mg/dL Total Bilirubin (0.2-1.3) mg/dL AST (14-36) U/L ALT (0-35) U/L Alkaline Phosphatase (38-126) U/L Troponin I (0.000-0.034) ng/mL Serum Total Protein (6.3-8.2) g/dL Albumin (3.5-5.0) g/dL TSH 3rd Generation 2.890 (0.47-4.68) mIU/L Urine Color STRAW (YELLOW) Urine Appearance SLIGHTLY CLOUDY (CLEAR) Urine pH 7.0 (5-6) Ur Specific [place] 1.004 (1.005-1.025) Urine Protein NEGATIVE (Negative) Urine Ketones NEGATIVE (NEGATIVE) Urine Blood NEGATIVE (0-5) Max/ul Urine Nitrite NEGATIVE (NEGATIVE) Urine Bilirubin NEGATIVE (NEGATIVE) Urine Urobilinogen NEGATIVE (0-1) mg/dL Ur Leukocyte Esterase MODERATE (NEGATIVE) Urine WBC (Auto) 3-5 (0-5) /HPF Urine RBC (Auto) 3-5 (0-2) /HPF U Epithel Cells (Auto) RARE (FEW) /HPF Urine Bacteria (Auto) RARE (NEGATIVE) /HPF Urine Mucus (Auto) SLIGHT (NEGATIVE) /HPF Urine Culture Reflexed NO (NO) Urine Glucose NEGATIVE (NEGATIVE) mg/dL SARS-CoV-2 (PCR) (NEGATIVE) - Progress Progress: improved Progress Note: Patient reassessed. She has no complaints. Case discussed with patient's primary care physician Dr. Hauser. Dr. Hauser advised a dose of Norvasc 5 mg p.o. x1. This was administered. In light of patient's complaints of altered mental status and elevated blood pressure we will admit to observation. We will continue to monitor patient's neurologic status as well as her blood pressure. Plan of care discussed with patient. She agrees to admission at [facility] for further evaluation and treatment. Patient voices no other complaints or concerns at this time. Covid test resulted as negative. 05/10/21 14:21 05/10/21 14:23 Portions of this note were created with voice recognition technology. There may be grammatical, spelling, punctuation or sound alike errors 05/10/21 14:25 Repeat blood pressure is 193/[address] Barbara Will see patient in: hospital (observation) Counseled pt/family regarding: lab results, diagnosis - Departure Departure Disposition: Observation Clinical Impression: Hypoxemia, Hypertensive urgency, Altered mental status Condition: Stable Critical Care Time: No Referrals: GARRY HAUSER [Primary Care Provider] -
[2021-05-10 09:59] LABS: A-aADO2 21; ABG HEMOGLOBIN 13.3; ABG SITE RIGHT RADIAL; ARTERIAL BLD GAS O2 SATURATION 96.9 % (95-100); ARTERIAL BLOOD GAS BASE EXCESS 4.7 (-2.0-2.0); ARTERIAL BLOOD GAS FIO2 21 %; ARTERIAL BLOOD GAS PCO2 42 mmHg (35-45); ARTERIAL BLOOD GAS PO2 76 mmHg (75-100); ARTERIAL BLOOD GAS pH 7.45 (7.35-7.45); CARBOXYHEMOGLOBIN 6.5 % THgb (0.0-6.9); HCO3- 29.2 (22-28); HGB O2 SAT 89.6 g/dF (94-100)
[2021-05-10 10:05] LABS: Absolute Neutrophil Ct (ANC) 6.32 (1.4-6.9); BASOPHIL % 0.2 % (0.0-0.4); Basophil (Absolute #) 0.02 (0-0.4); Eosinophil % 1.6 % (0.00-5.0); Eosinophil (Absolute #) 0.14 (0-0.5); Hematocrit 43.2 % (35-47); Lymphocyte (Absolute #) 1.87 (1.0-4.6); Lymphocytes % 21.3 % (24.0-44.0); Mean Cell Volume 90.8 fl (78-100); Mean Corpuscular Hemoglobin 29.4 pg (26-32); Mean Corpuscular Hgb Concent. 32.4 g/dl (32-36); Mean Platelet Volume 10.5 fl (7.5-11.0); Monocyte (Absolute #) 0.42 (0.0-1.3); Monocytes % 4.8 % (0.0-12.0); Neutrophil % 72.1 % (36.0-66.0); Platelet Count 366 K/mm3 (150-450); Red Blood Count 4.76 M/mm3 (4.1-5.4); Red Cell Distribution Width 13.5 % (11.5-14.0); White Blood Count 8.8 K/mm3 (4.0-10.5)
--- NOTE | 2021-05-10 11:14 | XRAY ---
Indication: Acute mental status change. High blood pressure. Multiple contiguous axial images obtained through the head without contrast. Comparison: None Normal appearing brain parenchyma, ventricles, and bony calvarium for patient's age. Visualized paranasal sinuses and mastoid air cells are clear. Impression: Continued normal CT head without contrast exam.
[2021-05-10 11:36] LABS: ALBUMIN 4.2 g/dL (3.5-5.0); ALKALINE PHOSPHATASE 78 U/L (38-126); BLOOD UREA NITROGEN 10 mg/dL (7-17); CHLORIDE 104 mmol/L (98-107); Calcium 9.9 mg/dL (8.4-10.2); Carbon Dioxide 28 mmol/L (22-30); Creatinine 1 0.56 mg/dL (0.52-1.04); EST GLOMERULAR FILTRATION RATE > 60.0 ML/MIN; Glucose 107 mg/dL (74-106); MAGNESIUM 2.1 mg/dL (1.6-2.3); Potassium 4.1 mmol/L (3.5-5.1); SGOT/AST 21 U/L (14-36); SGPT/ALT 12 U/L (0-35); SODIUM 141 mmol/L (137-145); Total Protein 7.2 g/dL (6.3-8.2)
[2021-05-10 11:37] LABS: ANION GAP 13.1 MEQ/L (5-15)
[2021-05-10] MEDS ORDERED: NORVASC 5 MG PO ONE (12:50)
[2021-05-10] MEDS ORDERED: NORVASC 5 MG ONE (12:59)
[2021-05-10 13:12] LABS: Appearance SLIGHTLY CLOUDY (CLEAR); Bacteria RARE /HPF (NEGATIVE); Bilirubin NEGATIVE (NEGATIVE); Blood NEGATIVE Ery/ul (0-5); Epithelial Cells RARE /HPF (FEW); Glucose NEGATIVE (NEGATIVE); Ketones NEGATIVE (NEGATIVE); Leukocyte Esterase MODERATE (NEGATIVE); Mucus SLIGHT /HPF (NEGATIVE); Nitrite NEGATIVE (NEGATIVE); Protein,Urine Dip NEGATIVE (Negative); Specific Gravity 1.004 (1.005-1.025); Urobilinogen NEGATIVE mg/dL (0-1)
[2021-05-10] MEDS ORDERED: MAALOX ES 30 ML UNIT DOSE PO PRN (15:25)
[2021-05-10] MEDS ORDERED: TYLENOL 325 MG PO PRN (15:25)
[2021-05-10] MEDS ORDERED: MILK OF MAGNESIA 30 ML PO PRN (15:25)
[2021-05-10] MEDS ORDERED: Senokot-S Tablet PO PRN (15:25)
[2021-05-10] MEDS ORDERED: BUSPAR 5 MG PO PRN (16:48)
[2021-05-10] MEDS: Lopressor 50 MG PO SCH (21:14)
[2021-05-10] MEDS ORDERED: ZOLOFT 50 MG TABLET PO SCH (22:00)
[2021-05-11 08:39] VITALS: BP 160/81; PULSE 60
--- NOTE | 2021-05-11 08:50 | PCM.SSS ---
History of Present Illness - Chief Complaint Chief Complaint: hypertensive urgency History of Present Illness: is a 55 year old female pt of mine from [facility] with narcolepsy, obesity, anxiety, HTN, hypothyroid, and REAL with hypoventilation who was admitted through ER with hypertensive urgency. She had been feeling "disconnected." Was found to have BP 231 systolic in ER. Was given amlodipine 5mg and overnight her highest bp was 169 systolic. She denies having any CP/SOB. Will d/c pt to home on the amlodipine, in addition to her home metoprolol. F/u with me in 1 week. - Review of Systems Abdominal/Gastrointestinal: Abdominal Pain (chronic) Psychological: Depression (recently increased zoloft with Ajay Martinez), No Suicidal Ideations All Other Systems: Reviewed and Negative Medications & Allergies Home Medications: Home Medication List Metoprolol Tartrate 150 mg PO BID 12/06/14 [History Confirmed 05/10/21] Buspirone HCl 5 mg [Buspar 5 mg] 5 mg PO BIDPRN PRN 05/10/21 [History Confirmed 05/10/21] Dextroamphetamine/Amphetamine [Adderall Xr 30 mg Capsule] 30 mg PO BID 05/10/21 [History Confirmed 05/10/21] Sertraline HCl 50 mg [Zoloft 50 mg Tablet] 150 mg PO HS 05/10/21 [History Confirmed 05/10/21] Amlodipine Besylate 5 mg [Norvasc 5 mg] 5 mg PO DAILY #30 tablet 05/11/21 [Rx] Allergies/Adverse Reactions: Allergies Allergy/AdvReac Type Severity Reaction Status Date / Time Penicillins Allergy Verified 05/10/21 15:29 - Past Medical History Past Medical History: Yes Neurological History: TIA Cardiac History: Hypertension Respiratory History: Sleep Apnea, Other Endocrine Medical History: Hypothyroidism Musculoskelatal History: Arthritis Pyscho-Social History: Anxiety, Depression Reproductive Disorders: Endometriosis Comment: anemia, NARCOLEPSY, circadian rhythm disorder - Female History Are you now?: No (HYSTERECTOMY) - Past Surgical History Past Surgical History: Yes GI Surgical History: Appendectomy, Hernia Repair Musculskeletal Surgical Hx: Orthopedic Surgery Female Surgical History: Hysterectomy, Dilation & Curettage, Section Other Surgical History: right leg surgery, left hand, hernia repair - Social History Smoking Status: Current every day smoker How long have you smoked: "30 years" Exposure to second hand smoke: Yes Alcohol: Rarely Drug Use: marijuana - Physical Exam Vital Signs: Vital Signs - 24 hr Temp Pulse Resp BP Pulse Ox 05/11/21 08:00 97.2 F 60 18 160/81 96 05/11/21 04:00 96.7 F 61 18 155/70 97 05/10/21 23:52 96.8 F 68 18 169/78 99 05/10/21 19:10 97.9 F 72 16 138/70 93 L 05/10/21 15:59 98.7 F 73 20 167/78 96 05/10/21 14:26 100 05/10/21 14:25 62 193/88 100 05/10/21 14:00 70 20 182/114 100 05/10/21 13:39 71 20 182/114 98 05/10/21 12:00 73 20 182/114 96 05/10/21 11:00 110 H 20 125/44 97 05/10/21 10:49 72 15 182/114 98 05/10/21 10:19 73 182/114 97 05/10/21 09:19 67 20 231/113 100 General Appearance: no apparent distress, alert, obese Neurologic Exam: oriented x 3, cooperative Eye Exam: eyes nml inspection Neck Exam: normal inspection, non-tender, No lymphadenopathy Respiratory Exam: normal breath sounds, lungs clear, No crackles/rales, No rhonchi, No wheezing Cardiovascular Exam: regular rate/rhythm, normal heart sounds, No murmur Gastrointestinal/Abdomen Exam: soft, normal bowel sounds, No tenderness, No distention, No mass, No guarding, No rebound Back Exam: normal inspection, No rash Extremity Exam: normal inspection, No pedal edema, No swelling Skin Exam: normal color, warm, dry, No rash Results - Labs Lab/Micro Results: Lab Results-Last 24 Hours 05/10/21 05/10/21 05/10/21 Range/Units 09:38 09:39 09:40 WBC (4.0-10.5) K/mm3 RBC (4.1-5.4) M/mm3 Hgb (12.0-16.0) gm/dl Hct (35-47) % MCV (78-100) fl MCH (26-32) pg MCHC (32-36) g/dl RDW (11.5-14.0) % Plt Count (150-450) K/mm3 MPV (7.5-11.0) fl Gran % (36.0-66.0) % Eos # (Auto) (0-0.5) Absolute Lymphs (auto) (1.0-4.6) Absolute Monos (auto) (0.0-1.3) Lymphocytes % (24.0-44.0) % Monocytes % (0.0-12.0) % Eosinophils % (0.00-5.0) % Basophils % (0.0-0.4) % Absolute Granulocytes (1.4-6.9) Basophils # (0-0.4) Puncture Site RIGHT RADIAL pCO2 42 (35-45) mmHg pO2 76 (75-100) mmHg Base Excess 4.7 H (-2.0-2.0) O2 Saturation 89.6 L (94-100) g/dF ABG pH 7.45 (7.35-7.45) ABG HCO3 29.2 H* (22-28) ABG O2 Sat (Measured) 96.9 (95-100) % David Test NOT APPLICABLE A-a Gradient 21 a/A Ratio 0.78 Hemoglobin 13.3 Carboxyhemoglobin 6.5 (0.0-6.9) % THgb Methemoglobin 1.0 L (1.4-1.5) % Potassium 4.0 (3.5-5.1) Temperature 37.0 C POC O2 Flow Rate 21 % Sodium (137-145) mmol/L Chloride (98-107) mmol/L Carbon Dioxide (22-30) mmol/L Anion Gap (5-15) MEQ/L BUN (7-17) mg/dL Creatinine (0.52-1.04) mg/dL Estimated GFR ML/MIN Glucose (74-106) mg/dL Calcium (8.4-10.2) mg/dL Magnesium (1.6-2.3) mg/dL Total Bilirubin (0.2-1.3) mg/dL AST (14-36) U/L ALT (0-35) U/L Alkaline Phosphatase (38-126) U/L Troponin I (0.000-0.034) ng/mL Serum Total Protein (6.3-8.2) g/dL Albumin (3.5-5.0) g/dL Triglycerides (30-150) mg/dL Cholesterol (50-200) mg/dL LDL Cholesterol (30-100) mg/dL HDL Cholesterol (40-60) mg/dL Heart Disease Risk Ratio TSH 3rd Generation 2.890 (0.47-4.68) mIU/L Urine Color STRAW (YELLOW) Urine Appearance SLIGHTLY CLOUDY (CLEAR) Urine pH 7.0 (5-6) Ur Specific Normanna 1.004 (1.005-1.025) Urine Protein NEGATIVE (Negative) Urine Ketones NEGATIVE (NEGATIVE) Urine Blood NEGATIVE (0-5) Max/ul Urine Nitrite NEGATIVE (NEGATIVE) Urine Bilirubin NEGATIVE (NEGATIVE) Urine Urobilinogen NEGATIVE (0-1) mg/dL Ur Leukocyte Esterase MODERATE (NEGATIVE) Urine WBC (Auto) 3-5 (0-5) /HPF Urine RBC (Auto) 3-5 (0-2) /HPF U Epithel Cells (Auto) RARE (FEW) /HPF Urine Bacteria (Auto) RARE (NEGATIVE) /HPF Urine Mucus (Auto) SLIGHT (NEGATIVE) /HPF Urine Culture Reflexed NO (NO) Urine Glucose NEGATIVE (NEGATIVE) mg/dL SARS-CoV-2 (PCR) (NEGATIVE) 05/10/21 05/10/21 05/10/21 Range/Units 09:53 09:53 09:53 WBC 8.8 (4.0-10.5) K/mm3 RBC 4.76 (4.1-5.4) M/mm3 Hgb 14.0 (12.0-16.0) gm/dl Hct 43.2 (35-47) % MCV 90.8 (78-100) fl MCH 29.4 (26-32) pg MCHC 32.4 (32-36) g/dl RDW 13.5 (11.5-14.0) % Plt Count 366 (150-450) K/mm3 MPV 10.5 (7.5-11.0) fl Gran % 72.1 H (36.0-66.0) % Eos # (Auto) 0.14 (0-0.5) Absolute Lymphs (auto) 1.87 (1.0-4.6) Absolute Monos (auto) 0.42 (0.0-1.3) Lymphocytes % 21.3 L (24.0-44.0) % Monocytes % 4.8 (0.0-12.0) % Eosinophils % 1.6 (0.00-5.0) % Basophils % 0.2 (0.0-0.4) % Absolute Granulocytes 6.32 (1.4-6.9) Basophils # 0.02 (0-0.4) Puncture Site pCO2 (35-45) mmHg pO2 (75-100) mmHg Base Excess (-2.0-2.0) O2 Saturation (94-100) g/dF ABG pH (7.35-7.45) ABG HCO3 (22-28) ABG O2 Sat (Measured) (95-100) % David Test A-a Gradient a/A Ratio Hemoglobin Carboxyhemoglobin (0.0-6.9) % THgb Methemoglobin (1.4-1.5) % Potassium 4.1 (3.5-5.1) Temperature C POC O2 Flow Rate % Sodium 141 (137-145) mmol/L Chloride 104 (98-107) mmol/L Carbon Dioxide 28 (22-30) mmol/L Anion Gap 13.1 (5-15) MEQ/L BUN 10 (7-17) mg/dL Creatinine 0.56 (0.52-1.04) mg/dL Estimated GFR > 60.0 ML/MIN Glucose 107 H (74-106) mg/dL Calcium 9.9 (8.4-10.2) mg/dL Magnesium 2.1 (1.6-2.3) mg/dL Total Bilirubin 0.20 (0.2-1.3) mg/dL AST 21 (14-36) U/L ALT 12 (0-35) U/L Alkaline Phosphatase 78 (38-126) U/L Troponin I < 0.012 (0.000-0.034) ng/mL Serum Total Protein 7.2 (6.3-8.2) g/dL Albumin 4.2 (3.5-5.0) g/dL Triglycerides (30-150) mg/dL Cholesterol (50-200) mg/dL LDL Cholesterol (30-100) mg/dL HDL Cholesterol (40-60) mg/dL Heart Disease Risk Ratio TSH 3rd Generation (0.47-4.68) mIU/L Urine Color (YELLOW) Urine Appearance (CLEAR) Urine pH (5-6) Ur Specific Normanna (1.005-1.025) Urine Protein (Negative) Urine Ketones (NEGATIVE) Urine Blood (0-5) Max/ul Urine Nitrite (NEGATIVE) Urine Bilirubin (NEGATIVE) Urine Urobilinogen (0-1) mg/dL Ur Leukocyte Esterase (NEGATIVE) Urine WBC (Auto) (0-5) /HPF Urine RBC (Auto) (0-2) /HPF U Epithel Cells (Auto) (FEW) /HPF Urine Bacteria (Auto) (NEGATIVE) /HPF Urine Mucus (Auto) (NEGATIVE) /HPF Urine Culture Reflexed (NO) Urine Glucose (NEGATIVE) mg/dL SARS-CoV-2 (PCR) (NEGATIVE) 05/10/21 05/10/21 05/10/21 Range/Units 12:35 13:13 13:50 WBC (4.0-10.5) K/mm3 RBC (4.1-5.4) M/mm3 Hgb (12.0-16.0) gm/dl Hct (35-47) % MCV (78-100) fl MCH (26-32) pg MCHC (32-36) g/dl RDW (11.5-14.0) % Plt Count (150-450) K/mm3 MPV (7.5-11.0) fl Gran % (36.0-66.0) % Eos # (Auto) (0-0.5) Absolute Lymphs (auto) (1.0-4.6) Absolute Monos (auto) (0.0-1.3) Lymphocytes % (24.0-44.0) % Monocytes % (0.0-12.0) % Eosinophils % (0.00-5.0) % Basophils % (0.0-0.4) % Absolute Granulocytes (1.4-6.9) Basophils # (0-0.4) Puncture Site pCO2 (35-45) mmHg pO2 (75-100) mmHg Base Excess (-2.0-2.0) O2 Saturation (94-100) g/dF ABG pH (7.35-7.45) ABG HCO3 (22-28) ABG O2 Sat (Measured) (95-100) % David Test A-a Gradient a/A Ratio Hemoglobin Carboxyhemoglobin (0.0-6.9) % THgb Methemoglobin (1.4-1.5) % Potassium (3.5-5.1) Temperature C POC O2 Flow Rate % Sodium (137-145) mmol/L Chloride (98-107) mmol/L Carbon Dioxide (22-30) mmol/L Anion Gap (5-15) MEQ/L BUN (7-17) mg/dL Creatinine (0.52-1.04) mg/dL Estimated GFR ML/MIN Glucose (74-106) mg/dL Calcium (8.4-10.2) mg/dL Magnesium (1.6-2.3) mg/dL Total Bilirubin (0.2-1.3) mg/dL AST (14-36) U/L ALT (0-35) U/L Alkaline Phosphatase (38-126) U/L Troponin I < 0.012 < 0.012 (0.000-0.034) ng/mL Serum Total Protein (6.3-8.2) g/dL Albumin (3.5-5.0) g/dL Triglycerides (30-150) mg/dL Cholesterol (50-200) mg/dL LDL Cholesterol (30-100) mg/dL HDL Cholesterol (40-60) mg/dL Heart Disease Risk Ratio TSH 3rd Generation (0.47-4.68) mIU/L Urine Color (YELLOW) Urine Appearance (CLEAR) Urine pH (5-6) Ur Specific Normanna (1.005-1.025) Urine Protein (Negative) Urine Ketones (NEGATIVE) Urine Blood (0-5) Max/ul Urine Nitrite (NEGATIVE) Urine Bilirubin (NEGATIVE) Urine Urobilinogen (0-1) mg/dL Ur Leukocyte Esterase (NEGATIVE) Urine WBC (Auto) (0-5) /HPF Urine RBC (Auto) (0-2) /HPF U Epithel Cells (Auto) (FEW) /HPF Urine Bacteria (Auto) (NEGATIVE) /HPF Urine Mucus (Auto) (NEGATIVE) /HPF Urine Culture Reflexed (NO) Urine Glucose (NEGATIVE) mg/dL SARS-CoV-2 (PCR) NEGATIVE (NEGATIVE) 05/10/21 05/10/21 05/11/21 Range/Units 18:14 21:19 04:20 WBC (4.0-10.5) K/mm3 RBC (4.1-5.4) M/mm3 Hgb (12.0-16.0) gm/dl Hct (35-47) % MCV (78-100) fl MCH (26-32) pg MCHC (32-36) g/dl RDW (11.5-14.0) % Plt Count (150-450) K/mm3 MPV (7.5-11.0) fl Gran % (36.0-66.0) % Eos # (Auto) (0-0.5) Absolute Lymphs (auto) (1.0-4.6) Absolute Monos (auto) (0.0-1.3) Lymphocytes % (24.0-44.0) % Monocytes % (0.0-12.0) % Eosinophils % (0.00-5.0) % Basophils % (0.0-0.4) % Absolute Granulocytes (1.4-6.9) Basophils # (0-0.4) Puncture Site pCO2 (35-45) mmHg pO2 (75-100) mmHg Base Excess (-2.0-2.0) O2 Saturation (94-100) g/dF ABG pH (7.35-7.45) ABG HCO3 (22-28) ABG O2 Sat (Measured) (95-100) % David Test A-a Gradient a/A Ratio Hemoglobin Carboxyhemoglobin (0.0-6.9) % THgb Methemoglobin (1.4-1.5) % Potassium (3.5-5.1) Temperature C POC O2 Flow Rate % Sodium (137-145) mmol/L Chloride (98-107) mmol/L Carbon Dioxide (22-30) mmol/L Anion Gap (5-15) MEQ/L BUN (7-17) mg/dL Creatinine (0.52-1.04) mg/dL Estimated GFR ML/MIN Glucose (74-106) mg/dL Calcium (8.4-10.2) mg/dL Magnesium (1.6-2.3) mg/dL Total Bilirubin (0.2-1.3) mg/dL AST (14-36) U/L ALT (0-35) U/L Alkaline Phosphatase (38-126) U/L Troponin I < 0.012 < 0.012 (0.000-0.034) ng/mL Serum Total Protein (6.3-8.2) g/dL Albumin (3.5-5.0) g/dL Triglycerides 140 (30-150) mg/dL Cholesterol 211 H (50-200) mg/dL LDL Cholesterol 128 H (30-100) mg/dL HDL Cholesterol 53 (40-60) mg/dL Heart Disease Risk Ratio 4.0 TSH 3rd Generation (0.47-4.68) mIU/L Urine Color (YELLOW) Urine Appearance (CLEAR) Urine pH (5-6) Ur Specific Normanna (1.005-1.025) Urine Protein (Negative) Urine Ketones (NEGATIVE) Urine Blood (0-5) Max/ul Urine Nitrite (NEGATIVE) Urine Bilirubin (NEGATIVE) Urine Urobilinogen (0-1) mg/dL Ur Leukocyte Esterase (NEGATIVE) Urine WBC (Auto) (0-5) /HPF Urine RBC (Auto) (0-2) /HPF U Epithel Cells (Auto) (FEW) /HPF Urine Bacteria (Auto) (NEGATIVE) /HPF Urine Mucus (Auto) (NEGATIVE) /HPF Urine Culture Reflexed (NO) Urine Glucose (NEGATIVE) mg/dL SARS-CoV-2 (PCR) (NEGATIVE) - Radiology Impressions Radiology Exams & Impressions: Radiology Procedures Category Date Time Status HEAD WITHOUT CONTRAST [CT] Stat Exams 05/10/21 10:39 Completed - Other Procedures and Tests Respiratory Therapy 05/10/21 16:31 RT Screen per Nursing Assess ONCE Smoking Cessation Education ONCE 05/11/21 01:44 BiPap/CPAP ROUTINE 05/11/21 05:50 Oxygen Nasal Cannula 2 lpm 05/12/21 05:00 EKG ONCE 05/13/21 05:00 EKG ONCE Assessment/Plan (1) Hypertensive urgency Current Visit: Yes Status: Resolved Assessment & Plan: Home on amlodipine 5mg in addition to her metoprolol. F/u w Erin Martinez in 1 week. Code(s): I16.0 - HYPERTENSIVE URGENCY Hospital Summary - Hospital Course Hospital Course: Pt admitted with hypertensive urgency, bp better with addition of amlodipine. Home today and f/u with Ajay Martinez in 1 week. - Vitals & Intake/Output Vital Signs: Vital Signs Temperature 97.2 F 05/11/21 08:00 Pulse Rate 60 05/11/21 08:00 Respiratory Rate 18 05/11/21 08:00 Blood Pressure 160/81 05/11/21 08:00 O2 Sat by Pulse Oximetry 96 05/11/21 08:00 Intake & Output: Intake & Output 05/08/21 05/09/21 05/10/21 05/11/21 11:59 11:59 11:59 11:59 Intake Total 840 Balance 840 Weight 79.379 kg 76.4 kg - Lab Result Diagrams: 05/10/21 09:53 05/10/21 09:53 Lab Results-Last 24 Hrs: Lab Results-Last 24 Hours 05/10/21 05/10/21 05/10/21 Range/Units 09:38 09:39 09:40 WBC (4.0-10.5) K/mm3 RBC (4.1-5.4) M/mm3 Hgb (12.0-16.0) gm/dl Hct (35-47) % MCV (78-100) fl MCH (26-32) pg MCHC (32-36) g/dl RDW (11.5-14.0) % Plt Count (150-450) K/mm3 MPV (7.5-11.0) fl Gran % (36.0-66.0) % Eos # (Auto) (0-0.5) Absolute Lymphs (auto) (1.0-4.6) Absolute Monos (auto) (0.0-1.3) Lymphocytes % (24.0-44.0) % Monocytes % (0.0-12.0) % Eosinophils % (0.00-5.0) % Basophils % (0.0-0.4) % Absolute Granulocytes (1.4-6.9) Basophils # (0-0.4) Puncture Site RIGHT RADIAL pCO2 42 (35-45) mmHg pO2 76 (75-100) mmHg Base Excess 4.7 H (-2.0-2.0) O2 Saturation 89.6 L (94-100) g/dF ABG pH 7.45 (7.35-7.45) ABG HCO3 29.2 H* (22-28) ABG O2 Sat (Measured) 96.9 (95-100) % David Test NOT APPLICABLE A-a Gradient 21 a/A Ratio 0.78 Hemoglobin 13.3 Carboxyhemoglobin 6.5 (0.0-6.9) % THgb Methemoglobin 1.0 L (1.4-1.5) % Potassium 4.0 (3.5-5.1) Temperature 37.0 C POC O2 Flow Rate 21 % Sodium (137-145) mmol/L Chloride (98-107) mmol/L Carbon Dioxide (22-30) mmol/L Anion Gap (5-15) MEQ/L BUN (7-17) mg/dL Creatinine (0.52-1.04) mg/dL Estimated GFR ML/MIN Glucose (74-106) mg/dL Calcium (8.4-10.2) mg/dL Magnesium (1.6-2.3) mg/dL Total Bilirubin (0.2-1.3) mg/dL AST (14-36) U/L ALT (0-35) U/L Alkaline Phosphatase (38-126) U/L Troponin I (0.000-0.034) ng/mL Serum Total Protein (6.3-8.2) g/dL Albumin (3.5-5.0) g/dL Triglycerides (30-150) mg/dL Cholesterol (50-200) mg/dL LDL Cholesterol (30-100) mg/dL HDL Cholesterol (40-60) mg/dL Heart Disease Risk Ratio TSH 3rd Generation 2.890 (0.47-4.68) mIU/L Urine Color STRAW (YELLOW) Urine Appearance SLIGHTLY CLOUDY (CLEAR) Urine pH 7.0 (5-6) Ur Specific Normanna 1.004 (1.005-1.025) Urine Protein NEGATIVE (Negative) Urine Ketones NEGATIVE (NEGATIVE) Urine Blood NEGATIVE (0-5) Max/ul Urine Nitrite NEGATIVE (NEGATIVE) Urine Bilirubin NEGATIVE (NEGATIVE) Urine Urobilinogen NEGATIVE (0-1) mg/dL Ur Leukocyte Esterase MODERATE (NEGATIVE) Urine WBC (Auto) 3-5 (0-5) /HPF Urine RBC (Auto) 3-5 (0-2) /HPF U Epithel Cells (Auto) RARE (FEW) /HPF Urine Bacteria (Auto) RARE (NEGATIVE) /HPF Urine Mucus (Auto) SLIGHT (NEGATIVE) /HPF Urine Culture Reflexed NO (NO) Urine Glucose NEGATIVE (NEGATIVE) mg/dL SARS-CoV-2 (PCR) (NEGATIVE) 05/10/21 05/10/21 05/10/21 Range/Units 09:53 09:53 09:53 WBC 8.8 (4.0-10.5) K/mm3 RBC 4.76 (4.1-5.4) M/mm3 Hgb 14.0 (12.0-16.0) gm/dl Hct 43.2 (35-47) % MCV 90.8 (78-100) fl MCH 29.4 (26-32) pg MCHC 32.4 (32-36) g/dl RDW 13.5 (11.5-14.0) % Plt Count 366 (150-450) K/mm3 MPV 10.5 (7.5-11.0) fl Gran % 72.1 H (36.0-66.0) % Eos # (Auto) 0.14 (0-0.5) Absolute Lymphs (auto) 1.87 (1.0-4.6) Absolute Monos (auto) 0.42 (0.0-1.3) Lymphocytes % 21.3 L (24.0-44.0) % Monocytes % 4.8 (0.0-12.0) % Eosinophils % 1.6 (0.00-5.0) % Basophils % 0.2 (0.0-0.4) % Absolute Granulocytes 6.32 (1.4-6.9) Basophils # 0.02 (0-0.4) Puncture Site pCO2 (35-45) mmHg pO2 (75-100) mmHg Base Excess (-2.0-2.0) O2 Saturation (94-100) g/dF ABG pH (7.35-7.45) ABG HCO3 (22-28) ABG O2 Sat (Measured) (95-100) % David Test A-a Gradient a/A Ratio Hemoglobin Carboxyhemoglobin (0.0-6.9) % THgb Methemoglobin (1.4-1.5) % Potassium 4.1 (3.5-5.1) Temperature C POC O2 Flow Rate % Sodium 141 (137-145) mmol/L Chloride 104 (98-107) mmol/L Carbon Dioxide 28 (22-30) mmol/L Anion Gap 13.1 (5-15) MEQ/L BUN 10 (7-17) mg/dL Creatinine 0.56 (0.52-1.04) mg/dL Estimated GFR > 60.0 ML/MIN Glucose 107 H (74-106) mg/dL Calcium 9.9 (8.4-10.2) mg/dL Magnesium 2.1 (1.6-2.3) mg/dL Total Bilirubin 0.20 (0.2-1.3) mg/dL AST 21 (14-36) U/L ALT 12 (0-35) U/L Alkaline Phosphatase 78 (38-126) U/L Troponin I < 0.012 (0.000-0.034) ng/mL Serum Total Protein 7.2 (6.3-8.2) g/dL Albumin 4.2 (3.5-5.0) g/dL Triglycerides (30-150) mg/dL Cholesterol (50-200) mg/dL LDL Cholesterol (30-100) mg/dL HDL Cholesterol (40-60) mg/dL Heart Disease Risk Ratio TSH 3rd Generation (0.47-4.68) mIU/L Urine Color (YELLOW) Urine Appearance (CLEAR) Urine pH (5-6) Ur Specific Normanna (1.005-1.025) Urine Protein (Negative) Urine Ketones (NEGATIVE) Urine Blood (0-5) Max/ul Urine Nitrite (NEGATIVE) Urine Bilirubin (NEGATIVE) Urine Urobilinogen (0-1) mg/dL Ur Leukocyte Esterase (NEGATIVE) Urine WBC (Auto) (0-5) /HPF Urine RBC (Auto) (0-2) /HPF U Epithel Cells (Auto) (FEW) /HPF Urine Bacteria (Auto) (NEGATIVE) /HPF Urine Mucus (Auto) (NEGATIVE) /HPF Urine Culture Reflexed (NO) Urine Glucose (NEGATIVE) mg/dL SARS-CoV-2 (PCR) (NEGATIVE) 05/10/21 05/10/21 05/10/21 Range/Units 12:35 13:13 13:50 WBC (4.0-10.5) K/mm3 RBC (4.1-5.4) M/mm3 Hgb (12.0-16.0) gm/dl Hct (35-47) % MCV (78-100) fl MCH (26-32) pg MCHC (32-36) g/dl RDW (11.5-14.0) % Plt Count (150-450) K/mm3 MPV (7.5-11.0) fl Gran % (36.0-66.0) % Eos # (Auto) (0-0.5) Absolute Lymphs (auto) (1.0-4.6) Absolute Monos (auto) (0.0-1.3) Lymphocytes % (24.0-44.0) % Monocytes % (0.0-12.0) % Eosinophils % (0.00-5.0) % Basophils % (0.0-0.4) % Absolute Granulocytes (1.4-6.9) Basophils # (0-0.4) Puncture Site pCO2 (35-45) mmHg pO2 (75-100) mmHg Base Excess (-2.0-2.0) O2 Saturation (94-100) g/dF ABG pH (7.35-7.45) ABG HCO3 (22-28) ABG O2 Sat (Measured) (95-100) % David Test A-a Gradient a/A Ratio Hemoglobin Carboxyhemoglobin (0.0-6.9) % THgb Methemoglobin (1.4-1.5) % Potassium (3.5-5.1) Temperature C POC O2 Flow Rate % Sodium (137-145) mmol/L Chloride (98-107) mmol/L Carbon Dioxide (22-30) mmol/L Anion Gap (5-15) MEQ/L BUN (7-17) mg/dL Creatinine (0.52-1.04) mg/dL Estimated GFR ML/MIN Glucose (74-106) mg/dL Calcium (8.4-10.2) mg/dL Magnesium (1.6-2.3) mg/dL Total Bilirubin (0.2-1.3) mg/dL AST (14-36) U/L ALT (0-35) U/L Alkaline Phosphatase (38-126) U/L Troponin I < 0.012 < 0.012 (0.000-0.034) ng/mL Serum Total Protein (6.3-8.2) g/dL Albumin (3.5-5.0) g/dL Triglycerides (30-150) mg/dL Cholesterol (50-200) mg/dL LDL Cholesterol (30-100) mg/dL HDL Cholesterol (40-60) mg/dL Heart Disease Risk Ratio TSH 3rd Generation (0.47-4.68) mIU/L Urine Color (YELLOW) Urine Appearance (CLEAR) Urine pH (5-6) Ur Specific Normanna (1.005-1.025) Urine Protein (Negative) Urine Ketones (NEGATIVE) Urine Blood (0-5) Max/ul Urine Nitrite (NEGATIVE) Urine Bilirubin (NEGATIVE) Urine Urobilinogen (0-1) mg/dL Ur Leukocyte Esterase (NEGATIVE) Urine WBC (Auto) (0-5) /HPF Urine RBC (Auto) (0-2) /HPF U Epithel Cells (Auto) (FEW) /HPF Urine Bacteria (Auto) (NEGATIVE) /HPF Urine Mucus (Auto) (NEGATIVE) /HPF Urine Culture Reflexed (NO) Urine Glucose (NEGATIVE) mg/dL SARS-CoV-2 (PCR) NEGATIVE (NEGATIVE) 05/10/21 05/10/21 05/11/21 Range/Units 18:14 21:19 04:20 WBC (4.0-10.5) K/mm3 RBC (4.1-5.4) M/mm3 Hgb (12.0-16.0) gm/dl Hct (35-47) % MCV (78-100) fl MCH (26-32) pg MCHC (32-36) g/dl RDW (11.5-14.0) % Plt Count (150-450) K/mm3 MPV (7.5-11.0) fl Gran % (36.0-66.0) % Eos # (Auto) (0-0.5) Absolute Lymphs (auto) (1.0-4.6) Absolute Monos (auto) (0.0-1.3) Lymphocytes % (24.0-44.0) % Monocytes % (0.0-12.0) % Eosinophils % (0.00-5.0) % Basophils % (0.0-0.4) % Absolute Granulocytes (1.4-6.9) Basophils # (0-0.4) Puncture Site pCO2 (35-45) mmHg pO2 (75-100) mmHg Base Excess (-2.0-2.0) O2 Saturation (94-100) g/dF ABG pH (7.35-7.45) ABG HCO3 (22-28) ABG O2 Sat (Measured) (95-100) % David Test A-a Gradient a/A Ratio Hemoglobin Carboxyhemoglobin (0.0-6.9) % THgb Methemoglobin (1.4-1.5) % Potassium (3.5-5.1) Temperature C POC O2 Flow Rate % Sodium (137-145) mmol/L Chloride (98-107) mmol/L Carbon Dioxide (22-30) mmol/L Anion Gap (5-15) MEQ/L BUN (7-17) mg/dL Creatinine (0.52-1.04) mg/dL Estimated GFR ML/MIN Glucose (74-106) mg/dL Calcium (8.4-10.2) mg/dL Magnesium (1.6-2.3) mg/dL Total Bilirubin (0.2-1.3) mg/dL AST (14-36) U/L ALT (0-35) U/L Alkaline Phosphatase (38-126) U/L Troponin I < 0.012 < 0.012 (0.000-0.034) ng/mL Serum Total Protein (6.3-8.2) g/dL Albumin (3.5-5.0) g/dL Triglycerides 140 (30-150) mg/dL Cholesterol 211 H (50-200) mg/dL LDL Cholesterol 128 H (30-100) mg/dL HDL Cholesterol 53 (40-60) mg/dL Heart Disease Risk Ratio 4.0 TSH 3rd Generation (0.47-4.68) mIU/L Urine Color (YELLOW) Urine Appearance (CLEAR) Urine pH (5-6) Ur Specific Normanna (1.005-1.025) Urine Protein (Negative) Urine Ketones (NEGATIVE) Urine Blood (0-5) Max/ul Urine Nitrite (NEGATIVE) Urine Bilirubin (NEGATIVE) Urine Urobilinogen (0-1) mg/dL Ur Leukocyte Esterase (NEGATIVE) Urine WBC (Auto) (0-5) /HPF Urine RBC (Auto) (0-2) /HPF U Epithel Cells (Auto) (FEW) /HPF Urine Bacteria (Auto) (NEGATIVE) /HPF Urine Mucus (Auto) (NEGATIVE) /HPF Urine Culture Reflexed (NO) Urine Glucose (NEGATIVE) mg/dL SARS-CoV-2 (PCR) (NEGATIVE) - Radiology Exams Ordered Rad Exams-Entire Visit: Radiology Procedures Category Date Time Status HEAD WITHOUT CONTRAST [CT] Stat Exams 05/10/21 10:39 Completed - Procedures and Test Procedures and Tests throughout Hospitalization: Therapy Orders & Screens 05/10/21 15:25 EKG [id number],QAMX3,PRN Comment: 05/10/21 16:31 RT Screen per Nursing Assess ONCE Comment: Protocol Order Physician Instructions: Greater than 3 points order RT Admission Screen Reason For Exam: Triggered on Admission Diagnosis: hypertensive urgency Diagnosis: hypertensive urgency Pneumonia: No Home O2: Yes Asthma: No CHF: No Home CPAP/BIPAP: Yes Home Nebs/MDI: No Total Points: 10 Smoking Cessation Education ONCE Comment: Diagnosis: hypertensive urgency Smoking Status: Current every day smoker How long have you smoked: "30 years" Have you smoked in the past 12 months: Yes Approximately how many cigarettes per day: 40 Do you dip or chew tobacco: No 05/10/21 17:38 EKG ONCE Comment: Diagnosis: hypertensive urgency 05/11/21 01:44 BiPap/CPAP ROUTINE Comment: as per home settings Diagnosis: hypertensive urgency 05/11/21 05:00 EKG ONCE Comment: Diagnosis: hypertensive urgency 05/11/21 05:50 Oxygen Nasal Cannula 2 lpm Comment: Diagnosis: hypertensive urgency 05/12/21 05:00 EKG ONCE Comment: Diagnosis: hypertensive urgency 05/13/21 05:00 EKG ONCE Comment: Diagnosis: hypertensive urgency - Discharge Disposition: Home, Self-Care Condition: Good Prescriptions: New Amlodipine Besylate 5 mg [Norvasc 5 mg] 5 mg PO DAILY #30 tablet Continue Metoprolol Tartrate 150 mg PO BID Buspirone HCl 5 mg [Buspar 5 mg] 5 mg PO BIDPRN PRN PRN Reason: Anxiety Dextroamphetamine/Amphetamine [Adderall Xr 30 mg Capsule] 30 mg PO BID Sertraline HCl 50 mg [Zoloft 50 mg Tablet] 150 mg PO HS Follow up with: GARRY AGUIAR [Primary Care Provider] -
[2021-05-11] MEDS: Lopressor 50 MG PO SCH (09:21)
[2021-05-11 09:33] VITALS: O2SAT 93
== END 2021-05-11 10:57 | disposition home or self-care (01) ==
LOC: ED 09:19 → MED SURG 15:24
PROVIDERS: ADMIT Family Medicine; ATTEND Family Medicine
DX: I16.0 Hypertensive urgency (principal); Z79.899 Other long term (current) drug therapy; I10 Essential (primary) hypertension; E03.9 Hypothyroidism, unspecified; G47.30 Sleep apnea, unspecified; Z20.828 Contact with and (suspected) exposure to other viral communicable diseases
CPT/HCPCS: 36000; 36415; 36600; 70450; 80053; 80061; 81001; 82375; 82803; 83721; 83735; 84443; 84484; 85025; 93005; 93041; 93268; 94760; 99285; G0378; U0003; A9270-GY

== ENCOUNTER 2022-04-30 17:04 | Emergency (ER) | payer BC ==
[2022-04-30 17:26] VITALS: BP 147/111; PULSE 81; O2SAT 97
[2022-04-30] MEDS ORDERED: TORAdol 30 mg Injection IM ONE (17:31)
[2022-04-30] MEDS ORDERED: Adacel Vial IM ONE ×2 (17:33→17:44)
--- NOTE | 2022-04-30 17:38 | ERPHSYRPT ---
- History of Present Illness Source: patient Exam Limitations: no limitations Patient Subjective Stated Complaint: Pt fell over a missing brick in the road in [place] and landed on her right knee causing an injury yesterday Triage Nursing Assessment: Pt brought to the ER by her , hypertensive, rates knee pain as 6/10, states that she has pain to the medial side of her right knee and it radiates up the back of her thigh, bruising and swelling below the knee, denies hitting head, hit right elbow but denies needing medical help with it, Physician History: 56 yo wf cc of R knee pain after falling in [place], [place] yesterday after trip ping on removed brick from road. Pt denies LOC/Head injury/C,T,L-spine pain/Hip pain/chest pain/abdominal pain. She needs a Tdap. Method of Injury: fell Occurred: yesterday Quality: aching Severity of Pain-Max: moderate Severity of Pain-Current: moderate Lower Extremities Pain: knee: right Modifying Factors: Improves With: movement Associated Symptoms: unable to bear weight Allergies/Adverse Reactions: Penicillins Allergy (Verified 04/30/22 17:26) Home Medications: Metoprolol Tartrate 150 mg PO DAILY 12/06/14 [History] Buspirone HCl 5 mg [Buspar 5 mg] 5 mg PO BIDPRN PRN 05/10/21 [History] Dextroamphetamine/Amphetamine [Adderall Xr 30 mg Capsule] 30 mg PO BID 05/10/21 [History] Sertraline HCl 50 mg [Zoloft 50 mg Tablet] 150 mg PO HS 05/10/21 [History] Hx Tetanus, Diphtheria Vaccination/Date Given: No Hx Influenza Vaccination/Date Given: No Hx Pneumococcal Vaccination/Date Given: No Travel Risk - International Travel Have you traveled outside of the country in past 3 weeks: No - Coronavirus Screening Are you exhibiting any of the following symptoms?: No - Vaccine Status Have you recieved a Covid-19 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: 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 - Vaccination Dates Date of 2cond Vaccination (if applicable): 01/07/21 - Review of Systems Constitutional: No Symptoms Eyes: No Symptoms Ears, Nose, & Throat: No Symptoms Respiratory: No Symptoms Cardiac: No Symptoms Genitourinary Symptoms: No Symptoms Skin: No Symptoms Neurological: No Symptoms Psychological: No Symptoms Endocrine: No Symptoms Hematologic/Lymphatic: No Symptoms Immunological/Allergic: No Symptoms - Past Medical History Pertinent Past Medical History: Yes Neurological History: TIA Cardiac History: Hypertension Respiratory History: Sleep Apnea, Other Endocrine Medical History: Hypothyroidism Musculoskeletal History: Arthritis Psycho-Social History: Anxiety, Depression Female Reproductive Disorders: Endometriosis Other Medical History: anemia, NARCOLEPSY, circadian rhythm disorder - Past Surgical History Past Surgical History: Yes Gastrointestinal: Appendectomy, Hernia Repair Musculoskeletal: Orthopedic Surgery Female Surgical History: Hysterectomy, Dilation & Curettage, Section Other Surgical History: right leg surgery, left hand, hernia repair - Social History Smoking Status: Current every day smoker How long have you smoked: "30 years" Exposure to second hand smoke: Yes Drug Use: marijuana Patient Lives Alone: No - Nursing Vital Signs Nursing Vital Signs: Initial Vital Signs Temperature 97.7 F 04/30/22 17:12 Pulse Rate 81 04/30/22 17:12 Blood Pressure 147/111 04/30/22 17:12 O2 Sat by Pulse Oximetry 97 04/30/22 17:12 Pain Scale Pain Intensity 6 Hypertyensive - Physical Exam General Appearance: no apparent distress, cachetic Eyes, Ears, Nose, Throat Exam: normal ENT inspection, pharynx normal, moist mucous membranes Neck Exam: normal inspection, non-tender, supple, full range of motion, No Brudzinski, No Kernig's, No meningismus Cardiovascular/Respiratory Exam: chest non-tender, normal breath sounds, regular rate/rhythm, heart sounds normal Gastrointestinal/Abdominal Exam: non-tender, soft Back Exam: normal inspection, normal range of motion, No CVA tenderness, No vertebral tenderness Hips Exam: bilateral: non-tender, normal inspection, normal range of motion Legs Exam: bilateral leg: non-tender, normal inspection, normal range of motion Knees Exam: right knee: swelling (Marked edema of R-knee/Moderate ecchymotic area/Several abrasions/Good pedal pulse, distal sensation, and capillary return) Ankle Exam: bilateral ankle: non-tender, normal inspection, normal range of motion, no evidence of injury Foot Exam: bilateral foot: non-tender, normal inspection, normal range of motion, no evidence of injury Neuro/Tendon Exam: normal sensation, normal motor functions, normal tendon functions, responds to pain, no evidence tendon injury Mental Status Exam: alert, oriented x 3, cooperative Skin Exam: normal color, warm, dry SpO2 Interpretation: normal SpO2: 97 O2 Delivery: Room Air - Course Nursing assessment & vital signs reviewed: Yes Ordered Tests: Active Orders 24 hr Category Date Time Status Crutches STAT Care 04/30/22 17:57 Completed Splint STAT Care 04/30/22 17:55 Completed KNEE (3 VIEWS) Stat Exams 04/30/22 17:28 Completed Medication Summary Discontinued Medications Generic Name Dose Route Start Last Admin Trade Name Alida PRN Reason Stop Dose Admin Diphtheria/Tetanus/Acell Pertussis 0.5 ml 04/30/22 17:33 04/30/22 17:52 Tdap --Diph,Pertuss(Acell),Tet Vac/Pf 0.5 Ml Vial IM 04/30/22 17:34 0.5 ml .ONCE ONE Administration Diphtheria/Tetanus/Acell Pertussis Confirm 04/30/22 17:44 Tdap --Diph,Pertuss(Acell),Tet Vac/Pf 0.5 Ml Vial Administered 04/30/22 17:45 Dose 0.5 ml IM .STK-MED ONE Ketorolac Tromethamine 15 mg 04/30/22 17:31 04/30/22 17:53 Ketorolac Tromethamine 30 Mg/Ml Inj IM 04/30/22 17:32 15 mg STAT ONE Administration Ketorolac Tromethamine Confirm 04/30/22 17:44 Ketorolac Tromethamine 30 Mg/Ml Inj Administered 04/30/22 17:45 Dose 30 mg .ROUTE .STK-MED ONE - Progress Progress: improved Progress Note: 04/30/22 17:40 T-dap 15mg IM Toradol 04/30/22 18:07 R Knee immobilizer per nursing/NVI Crutches/teaching per nursing Counseled pt/family regarding: diagnosis, need for follow-up, rad results - Departure Departure Disposition: Home Clinical Impression: Contusion, knee, Strain of knee Condition: Stable Critical Care Time: No Referrals: GARRY PEREIRA [Primary Care Provider] - Follow up/PCP as directed SHERRY - [employer] [NON-STAFF PHY W/O PRIVILEGES] - Follow up/PCP as directed Instructions: Knee Sprain (DC), Knee Pain (DC) Additional Instructions: Use crutches/No weight bearing Pain meds as needed Ice to knee today Use stool softener with pain meds Follow up with Orthopedic clinic on Monday 8:00-10:00AM Prescriptions: Hydrocodone/Acetaminophen [Hydrocodone-Acetamin 5-325 mg] 1 tab PO Q6HPRN PRN #8 tablet MDD 4 PRN Reason: Pain
[2022-04-30] MEDS ORDERED: TORAdol 30 mg Injection ONE (17:44)
--- NOTE | 2022-04-30 19:43 | XRAY ---
Indication: Pain following fall. Comparison: February 11, 2019. 3 portable views right knee again demonstrates osteopenia with progressive worsening moderate/advanced tricompartmental degenerative changes again greatest medial compartment. New small nonspecific effusion. No other bony, articular, or soft tissue abnormalities.
== END 2022-04-30 18:27 | disposition home or self-care (01) ==
LOC: ED 17:04
DX: S80.01XA Contusion of right knee, initial encounter (principal); W01.0XXA Fall on same level from slipping, tripping and stumbling without subsequent striking against object, initial encounter; Y93.01 Activity, walking, marching and hiking; Y92.410 Unspecified street and highway as the place of occurrence of the external cause; S76.911A Strain of unspecified muscles, fascia and tendons at thigh level, right thigh, initial encounter; M25.561 Pain in right knee; I10 Essential (primary) hypertension; Z72.0 Tobacco use; Z79.899 Other long term (current) drug therapy; Z79.891 Long term (current) use of opiate analgesic
CPT/HCPCS: 73562; 90471; 90715; 96372; 99283; J1885; L1830

== ENCOUNTER 2024-01-11 09:37 | Day surgery (SDC) | payer BC ==
--- NOTE | 2023-12-13 13:41 | HP ---
DATE OF SURGERY: 12/14/2023 HISTORY OF PRESENT ILLNESS: The patient is a 58-year-old female who presents for endoscopy. Last colonoscopy ten years ago. No family history of any colon cancer. She has a history of having a laparoscopic appendectomy with a perforation and abscess. She has some bloating, alternating diarrhea and constipation. She has some back pain and abdomen pain. She also complains of nausea and some vomiting. Milk gives her some diarrhea and gas. Pizza bothers her. She does state that her gallbladder work up was okay. She is tender in her right upper quadrant. She said Dr. Mccormick has had her on some Linzess. PAST MEDICAL HISTORY: Hypertension, ADHD. PAST SURGICAL HISTORY: Appendectomy. section. Hysterectomy. D&C. Knee replacement. Suarez's cyst. Hernia repair. Tubal ligation. ALLERGIES: PENICILLIN. MEDICATIONS: Metoprolol, Adderall. FAMILY HISTORY: None. SOCIAL HISTORY: Every day smoker. REVIEW OF SYSTEMS: CONSTITUTIONAL: Denies fever or chills. CHEST: Denies shortness of breath. CVS: Denies chest pain. ABDOMEN: Reports right upper quadrant pain. PHYSICAL EXAMINATION: GENERAL: No acute distress. CHEST: Nonlabored. No shortness of breath. CVS: Regular rate and rhythm. ABDOMEN: Tender right upper quadrant. IMPRESSION: Nausea, vomiting, bloating right upper quadrant pain and screening. PLAN: EGD and colonoscopy with Dr. Kemar Rainey. As dictated by Saadia Siddiqui NP.
--- NOTE | 2024-01-10 07:45 | HP ---
DATE OF SURGERY: 01/11/2024 HISTORY OF PRESENT ILLNESS: The patient is a 58-year-old female presents for endoscopy. Last scope was ten years ago. No family history of any colon cancer. She had a laparoscopic appendectomy with perforation and abscess. Family history of breast and cervical cancer. She complains of bloating, alternating diarrhea and constipation, back and abdominal pain. She had nausea and vomiting. She has food that causes diarrhea and gas. It seems to be milk and pizza are triggers. She does state that her gallbladder work up was okay. She is tender in her right upper quadrant. She states that Dr. Mccormick had her on some Linzess. PAST MEDICAL HISTORY: Hypertension, ADHD, gastroesophageal reflux disease. PAST SURGICAL HISTORY: Appendectomy. section. Hysterectomy. D&C. Knee replacement. Suarez's cyst. Hernia repair. Tubal ligation. ALLERGIES: PENICILLIN. MEDICATIONS: Metoprolol, Adderall. FAMILY HISTORY: None reported. SOCIAL HISTORY: Negative. REVIEW OF SYSTEMS: CONSTITUTIONAL: Denies fever or chills. CHEST: Denies shortness of breath. CVS: Denies chest pain. ABDOMEN: Reports epigastric pain right upper quadrant. PHYSICAL EXAMINATION: GENERAL: No acute distress. CHEST: Nonlabored. No shortness of breath. CVS: Regular rate and rhythm. ABDOMEN: Soft, tender in right upper quadrant today. IMPRESSION: Nausea, vomiting, bloating, epigastric pain, right upper quadrant pain. PLAN: EGD and colonoscopy with Dr. Kemar Rainey. Possibly discuss cholecystectomy at some point. As dictated by Saadia Siddiqui NP.
[2024-01-11 10:01] VITALS: RESP 16; TEMP 98.3
[2024-01-11] MEDS ORDERED: Lactated Ringers 1,000 ML IV ONE (10:22)
[2024-01-11] MEDS: Lactated Ringers 1,000 ML IV SCH (10:25)
[2024-01-11] MEDS ORDERED: Versed 2 MG/2 ML Injection ONE (12:29)
[2024-01-11] MEDS ORDERED: DIPRIVAN 200 MG/20 ML IV ONE ×2 (12:29→12:40)
[2024-01-11] MEDS ORDERED: Xylocaine-Mpf 2% 5 Ml Vial ONE (12:29)
[2024-01-11] MEDS ORDERED: GlucaGen 1 MG ONE (12:43)
[2024-01-11 13:24] VITALS: PULSE 69; O2SAT 100
--- NOTE | 2024-01-11 13:41 | OP ---
SURGERY DATE/TIME: 01/11/2024 1228 PREOPERATIVE DIAGNOSIS: Nausea, vomiting, diarrhea, constipation. No recent colonoscopic examination. POSTOPERATIVE DIAGNOSES: 1) EGD demonstrating hemorrhagic gastritis. 2) Colonoscopic examination basically normal. PROCEDURES: 1) EGD. 2) Colonoscopy complete to cecum. SURGEON: Kemar Rainey M.D. ANESTHESIA: MAC. DESCRIPTION OF PROCEDURE: Patient brought to surgery. MAC sedation provided. Time out performed. Scope introduced. Pharyngoesophageal junction normal. Esophagus normal down to gastroesophageal junction. Gastroesophageal junction satisfactory. Upon entering the stomach, there was a diffuse hemorrhagic gastritis. It was fairly superficial but there were flecks of blood and superficial irritation. Pylorus normal. Duodenal bulb normal. Second portion normal. Scope withdrawn and looped upon itself satisfactory. Scope withdrawn. Anal digital examination satisfactory. Rectum was very angulated, moderate diverticulosis. It was navigated. At this time the scope advanced up to the cecum. Base of the cecum, ileocecal valve, appendiceal orifice photographed. Stool were sent for C. difficile, ova and parasite and stool pathogen. Circumferential withdraw. No mucosal lesions were noted. IMPRESSION: The patient has been told before that she has diagnosis of spastic colon. I think the exam today is also consistent with spastic colon. She was placed on Protonix for her hemorrhagic gastritis.
[2024-01-11 13:42] VITALS: BP 132/70
[2024-01-11 15:07] LABS: 027 TOX PROD PRESUMPTIVE NEGATIVE (NEGATIVE); TOXIGENIC C. DIFF ORG NEGATIVE (NEGATIVE)
== END 2024-01-11 13:48 | disposition home or self-care (01) ==
LOC: SDC 09:37
PROVIDERS: ATTEND Surgery
DX: K29.70 Gastritis, unspecified, without bleeding (principal); R11.2 Nausea with vomiting, unspecified; R19.7 Diarrhea, unspecified; K59.00 Constipation, unspecified; I10 Essential (primary) hypertension; Z80.3 Family history of malignant neoplasm of breast; Z80.8 Family history of malignant neoplasm of other organs or systems
CPT/HCPCS: 87045; 87046; 87177; 87209; 87328; 87329; 87427; 87493; 93005; J1610; J2250; J2704